=== PATIENT | male | born 1970 | race Caucasian/White ===

== ENCOUNTER 2017-07-28 15:04 | Emergency (ER) | payer OTHER ==
[~2017-07-28] VITALS: Ht 190.5 cm; Wt 100.0 kg
[2017-07-28 15:22] VITALS: BP 145/91; PULSE 81; RESP 16; TEMP 97.7; O2SAT 99
[2017-07-28] MEDS ORDERED: oxyCODONE/ACETAMINOPHEN 5 MG/325 MG TAB PO ONE (16:45)
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
[2017-07-28] MEDS ORDERED: ROBA750T PO (18:40)
[2017-07-28] MEDS ORDERED: TRAM50 PO (18:40)
--- NOTE | 2017-07-28 18:40 | PD ---
Physical Exam Narrative Patient was seen by ED physician and signed out to me. Data Data Last Documented VS Vital Signs Date Time Temp Pulse Resp B/P (MAP) Pulse Ox O2 Delivery O2 Flow Rate FiO2 07/28/17 15:22 97.7 81 16 145/91 (109) [address] Brain W/O Iv Contrast(Rout) (07/28/17 16:38) Ct Cerv Spine W/O Contrast (07/28/17 16:38) Chest, Pa & Lat (07/28/17 16:38) Oxycodone-Acetamin 5-325 Mg (Percocet (07/28/17 16:45) [facility] Supervised Visit with LANDY: No Interpretation(s) Last Impressions Head CT 07/28/17 1638 Signed Impressions: CONCLUSION: 1. No acute intracranial abnormalities. Chest X-Ray 07/28/17 163 Signed Impressions: CONCLUSION: No acute findings. Tortuous aorta. Cervical Spine CT 07/28/17 1638 Signed Impressions: CONCLUSION: 1. No acute findings. Mild to moderate degenerative disc disease. Narrative Course Patient was seen by ED physician and signed out to me. Patient states that he is unable to tolerate ibuprofen secondary to GI symptoms. Diagnosis Primary Impression: Cervical strain, acute Qualified Codes: S16.1XXA - Strain of muscle, fascia and tendon at neck level , initial encounter Additional Impression: Cephalgia Qualified Codes: R51 - Headache Patient Instructions: General Instructions Additional Instruction: Take medication as needed for pain. Ice pack the first 2 days and moist heat after that. Follow-up with personal physician and orthopedist. Med/Other Pt SpecificInfo: Prescription(s) given Scripts Tramadol (Ultram) 50 Mg Tab 50 MG PO Q6H Y for PAIN, #12 TAB 0 Refills Prov: Mihai Harmon MD 07/28/17 Methocarbamol (Robaxin) 750 Mg Tab 750 MG PO QID for Muscle Spasm, #60 TAB 0 Refills Prov: Mihai Harmon MD 07/28/17 Disposition: 01 DISCHARGE HOME Condition: Stable Mihai Harmon MD July 28, 2017 18:40
== END 2017-07-28 19:57 | disposition home or self-care (01) ==
LOC: NEPD 15:04
DX: S16.1XXA Strain of muscle, fascia and tendon at neck level, initial encounter (principal); V49.50XA Passenger injured in collision with unspecified motor vehicles in traffic accident, initial encounter; R51 Headache
CPT/HCPCS: 70450; 71046; 72125